=== PATIENT | female | born 1955 ===

== ENCOUNTER 2018-11-14 06:12 | Day surgery (SDC) | payer OTHER ==
--- NOTE | 2018-11-13 12:47 | Pre-Procedure Note/Attestation ---
Pre-Procedure Note/Attestation Complete Prior to Procedure Planned Procedure: left Procedure Narrative: cataract extraction with implant left eye Indications for Procedure Pre-Operative Diagnosis: cataract left eye Attestation I attest that I discussed the nature of the procedure; its benefits; risks and complications; and alternatives (and the risks and benefits of such alternatives ), prior to the procedure, with the patient (or the patient's legal marketing sales representative). I attest that, if there was a reasonable possibility of needing a blood transfusion, the patient (or the patient's legal marketing sales representative) was given the [facility] standardized written summary, pursuant to the Jeff Maria Guadalupe Blood Safety Act ([place] Health and Safety Code # 1645, as amended). I attest that I re-evaluated the patient just prior to the surgery and that there has been no change in the patient's H&P, except as documented below: Tom Milligan MD November 13, 2018 12:47
[~2018-11-14] VITALS: Ht 157.5 cm; Wt 51.3 kg
[2018-11-14] VITALS (9 sets, daily range): BP systolic 105–120; BP diastolic 52–75
[~2018-11-14 06:12] MED LIST: Akten 3.5% 1ml Btl ONE; Diclofenac Sod 0.1% Op Soln ONE; LEVOTHYROXINE75 MCG ORAL; Phenylephrine 2.5% Op 2ml Soln ONE; Tobradex Opth Susp 2.5ml ONE; Tropicamide 1% Opth 15ml Soln ONE; Vigamox Opth Soln 3ml ONE
[2018-11-14] MEDS: Akten 3.5% 1ml Btl LEFT EYE SCH ×3 (06:46→07:05)
[2018-11-14] MEDS: Diclofenac Sod 0.1% Op Soln LEFT EYE SCH ×3 (06:46→07:05)
[2018-11-14] MEDS: Phenylephrine 2.5% Op 2ml Soln LEFT EYE SCH ×3 (06:47→07:05)
[2018-11-14] MEDS: Vigamox Opth Soln 3ml LEFT EYE SCH ×3 (06:47→07:06)
[2018-11-14] MEDS: Tropicamide 1% Opth 15ml Soln LEFT EYE SCH ×3 (06:47→07:05)
[2018-11-14] MEDS: Tobradex Opth Susp 2.5ml LEFT EYE SCH ×3 (06:47→07:06)
[2018-11-14] MEDS ORDERED: Succinylcholine 20mg/ml 10ml vial ONE (07:11)
[2018-11-14] MEDS ORDERED: Propofol 200mg/20ml IV ONE (07:11)
[2018-11-14] MEDS ORDERED: fentaNYL 100 mcg/2 mL IV ONE (07:11)
[2018-11-14] MEDS ORDERED: Lidocaine 1% MPF 10mg/ml 5ml ONE ×2 (07:16→07:30)
[2018-11-14] MEDS ORDERED: EPINEPHrine 1mg/1ml Amp ONE (07:16)
[2018-11-14] MEDS ORDERED: Povidone-Iodine 5% opth solution ONE (07:17)
[2018-11-14] MEDS ORDERED: BSS 500ml btl ONE (07:17)
[2018-11-14] MEDS ORDERED: acetaZOLAMIDE 500mg Inj ONE (07:17)
[2018-11-14] MEDS ORDERED: Sodium Hyaluronate 14 mg/ml 0.85ml ONE (07:17)
[2018-11-14] MEDS ORDERED: Dexamethasone 4mg/ml vial ONE (07:17)
[2018-11-14] MEDS ORDERED: Carbachol 0.01% Op Soln 1.5ml vial ONE (07:17)
[2018-11-14] MEDS ORDERED: BSS 15ml BTL ONE (07:17)
[2018-11-14] MEDS ORDERED: Sterile Water Irrig 1000ml IRRIG ONE (07:30)
[2018-11-14] MEDS ORDERED: LR 1000ml ONE (07:30)
[2018-11-14] MEDS ORDERED: NS Irrig 1000ml ONE (07:30)
--- NOTE | 2018-11-14 07:34 | Anethesia Preoperative Eval ---
Anesthesia Pre-op PMH/ROS General Date of Evaluation: November 14, 2018 Time of Evaluation: 07:18 Anesthesiologist: Regina Alvarado CRNA ASA Score: ASA 2 Mallampati Score Class I : Soft palate, uvula, fauces, pillars visible Class II: Soft palate, uvula, fauces visible Class III: Soft palate, base of uvula visible Class IV: Only hard plate visible Mallampati Classification: Class I Surgeon: Srini Diagnosis: Senile Cataract LEFT eye Surgical Procedure: LEFT eye cataract extraction with IOL Anesthesia History: none Family History: no anesthesia problems Allergies: Coded Allergies: No Known Allergies (Unverified , 11/13/18) Medications: see eMAR Patient NPO?: Yes NPO Date: November 14, 2018 NPO Time: 00:00 Past Medical History Cardiovascular: Denies: HTN, CAD, ND, valve dz, arrhythmia, other Pulmonary: Denies: asthma, COPD, AMADOR, other Gastrointestinal/Genitourinary: Denies: GERD, CRI, ESRD, other Neurologic/Psychiatric: Denies: dementia, CVA, depression/anxiety, TIA, other Endocrine: Reports: hypothyroidism HEENT: Reports: cataract (L) Hematology/Immune: Denies: anemia, DVT, bleeding disorder, other Musculoskeletal/Integumentary: Reports: OA; Denies: RA, DJD, DDD, edema, other PMH Narrative: as noted above PSxH Narrative: (B) knee arthroscopy, left shoulder and elbow surgery Anesthesia Pre-op Phys. Exam Physician Exam Last Vital Signs Date Time Temp Pulse Resp B/P (MAP) Pulse Ox O2 Delivery O2 Flow Rate FiO2 11/14/18 06:52 Room Air 11/14/18 06:50 97.7 58 20 105/52 97 Constitutional: NAD Neurologic: CN 2-12 intact, other - alert & oriented Cardiovascular: RRR Respiratory: CTA Gastrointestinal: S/NT/ND Airway Exam Mallampati Score: Class I MO: full Neck: FROM TMD: > 3 FB ROM: full Teeth: intact Dentures: no upper, no lower Anesthesia Pre-op A/P Risk Assessment & Plan Assessment: ASA 2, ok to proceed Plan: MAC Status Change Before Surgery: No Pre-Antibiotics Given Within 1 Hr of Incision: Regina Ott CRNA November 14, 2018 07:34
--- NOTE | 2018-11-14 08:18 | Brief Operative Note ---
Immediate Post Operative Note Operative Note Pre-op Diagnosis: cataract left eye Procedure: phacoemulsification of cataract with implant left eye Post-op Diagnosis: same as pre-op Surgeon: tom james Transition Social Worker: none Anesthesiologist: Regina Alvarado crna Anesthesia: MAC Specimen: none Complications: none Condition: stable Fluids: none Estimated Blood Loss: none Drains: none Implant(s) used?: Yes Tom James MD November 14, 2018 08:18
--- NOTE | 2018-11-14 08:24 | Immediate Post-Op Evaluation ---
Immediate Post-Op Evalulation Immediate Post-Op Evalulation Procedure: LEFT eye cataract extraction with IOL Date of Evaluation: November 14, 2018 Time of Evaluation: 08:14 IV Fluids: LR 200 ml Blood Pressure Systolic: 120 Blood Pressure Diastolic: 65 Pulse Rate: 63 Respiratory Rate: 16 O2 Sat by Pulse Oximetry: 99 Temperature (Fahrenheit): 97.8 Pain Score (1-10): 0 Nausea: No Vomiting: No Complications none Patient Status: awake, reacts, patent Hydration Status: adequate Given Within 1 Hr of Incision: Regina Ott CRNA November 14, 2018 08:24
--- NOTE | 2018-11-14 09:57 | 48 Hour Post Anesthesia Eval ---
Post Anesthesia Evaluation Procedure: LEFT eye cataract extraction with IOL Date of Evaluation: November 14, 2018 Time of Evaluation: 09:56 Blood Pressure Systolic: 118 0: 75 Pulse Rate: 56 Respiratory Rate: 18 Temperature (Fahrenheit): 97.8 O2 Sat by Pulse Oximetry: 98 Airway: patent Nausea: No Vomiting: No Pain Intensity: 0 Hydration Status: adequate Cardiopulmonary Status: stable Mental Status/LOC: patient returned to baseline Follow-up Care/Observations: per opthamology Post-Anesthesia Complications: none Follow-up care needed: N/A Regina Alvarado CRNA November 14, 2018 09:57
--- NOTE | 2018-11-14 18:00 | Operative Note - Dictated ---
DATE OF OPERATION: 11/14/2018 PREOPERATIVE DIAGNOSIS: Cataract, left eye. POSTOPERATIVE DIAGNOSIS: Cataract, left eye. PROCEDURE: Phacoemulsification of cataract, left eye with placement of posterior intraocular lens. SURGEON: Tom Milligan M.D. ([facility] [place]). IT PROJECT MANAGER: None. ANESTHESIA: MAC plus topical. ANESTHESIOLOGIST: Regina Alvarado CRNA. INDICATION FOR PROCEDURE: Poor vision, left eye. DESCRIPTION OF FINDINGS: Combined form of cataract, left eye. DESCRIPTION OF PROCEDURE: The patient received a topical anesthetic block consisting of 3.5% Akten eye drops. The eye was then prepped and draped in usual manner. A lid speculum was placed. An operating Zeiss microscope was positioned. The temporal corneal groove was made with the robbi blade. A SuperSharp blade made a stab incision at 6 o'clock position. A 0.1 mL of 1% nonpreserved intracameral lidocaine was injected. Healon was instilled into the anterior chamber. A 2.5/2.8 mm trapezoidal robbi eugene was used to complete the temporal corneal wound. A cystotome was used to create an anterior capsular flap. Utrata forceps were used to complete the capsulorrhexis. BSS on the cannula was used to hydrodissect the nucleus. The nucleus phacoemulsified in a phaco-fracture technique. Remaining cortical material was removed with the I/A and the posterior capsule was polished with the I/A on Cap vac. Healon was instilled into the capsular bag and anterior chamber, and a TECNIS foldable one-piece preloaded posterior chamber intraocular lens, model PCB00, power 17.5 diopter, serial #[id number] was placed into the capsular bag. The I/A tip was used to remove the Healon and positioning the lens. The wound edge was hydrated with BSS and a blunt-tipped cannula. The wound was checked and found to be watertight. The lid speculum was removed and a drop of TobraDex and Vigamox was placed. A clear plastic shield was taped over the eye. The patient tolerated the procedure well and left the operating room in good condition. Tom Milligan M.D. ([facility] [place]) DR: FRANC JOB#: [id number] CC:
== END 2018-11-14 09:15 | disposition home or self-care (01) ==
LOC: SUR 06:12
DX: H25.812 Combined forms of age-related cataract, left eye (principal); M19.90 Unspecified osteoarthritis, unspecified site; E03.9 Hypothyroidism, unspecified; Z79.82 Long term (current) use of aspirin; Z79.899 Other long term (current) drug therapy
CPT/HCPCS: 66984; J0171; J0330; J1100; J2704; J3010; V2632; 94003; 94150